=== PATIENT | female | born 1960 | race Caucasian/White ===

== ENCOUNTER 2016-09-18 14:50 | Inpatient (IN) | payer OTHER, SELFPAY ==
[2016-09-18] VITALS (7 sets, daily range): BP systolic 114–135; BP diastolic 73–92; PULSE 60–84; RESP 14–18; TEMP 97.8; O2SAT 94–95
[~2016-09-18] VITALS: Ht 165.1 cm; Wt 69.0 kg
[~2016-09-18 14:50] MED LIST: Z.0.NO CURRENT MEDS
[2016-09-18] MEDS ORDERED: SODIUM CHLOR 0.9% 1000 ML INJ 1,000 ML IV SCH (16:18)
[2016-09-18] MEDS ORDERED: ONDANSETRON HCL 4 MG/2 ML VIAL IVP ONE (16:30)
[2016-09-18] MEDS ORDERED: SODIUM CHLORIDE 0.9% FLUSH 5 ML FLUSH IVF PRN ×2 (16:30→22:15)
--- NOTE | 2016-09-18 16:45 | PD ---
HPI Chief Complaint: GI Complaint Time Seen by Provider: 16:10 Travel History International Travel<30 days: No Contact w/Intl Traveler<30days: No History of Present Illness HPI Patient 55-year-old female presents with nausea and vomiting for the past 2 days. Patient's complaint is "I think I got food poisoning and initially got better but today has gotten worse". Patient states she's been having nonbilious nonbloody emesis denies any change in her stools. She also complains of an abdominal cramping fairly generalized throughout her abdomen. Denies any focal pain. States his pain comes and goes. Currently she states the pain is completely gone and she declines any pain medicine when offered. Denies any fever denies any chest pain shortness of breath extremity pain rash. Denies any other sick contacts. Patient denies any surgeries on her abdomen, states she's never had a colonoscopy. Medical history is that she has hyperlipidemia, hypertension, smoker. PFSH Past Medical History Anxiety: Yes High Cholesterol: Yes Diminished Hearing: No Hypertension: Yes Tetanus Vaccination: > 5 Years Influenza Vaccination: No ?: Not Menopausal: Yes : 0 Past Surgical History Other Surgery: Yes (2 LUMPECTOMIES (RIGHT BREAST)) Social History Alcohol Use: Yes (3 BEERS DAILY) Tobacco Use: Yes (3/4 PPD) Substance Use: No Allergies-Medications (Allergen,Severity, Reaction): Coded Allergies: No Known Allergies (Verified , 09/18/16) Reported Meds & Prescriptions Reported Meds & Active Scripts Active Reported No Current Meds (Miscellaneous Medication) Misc Review of Systems Except as stated in HPI: all other systems reviewed are Neg Physical Exam Narrative GENERAL: Well-developed well-nourished no apparent distress. SKIN: Warm and dry. HEAD: Atraumatic. Normocephalic. EYES: Pupils equal and round. No scleral icterus. No injection or drainage. ENT: No nasal bleeding or discharge. Mucous membranes pink and moist. NECK: Trachea midline. No JVD. CARDIOVASCULAR: Regular rate and rhythm. No murmur appreciated. RESPIRATORY: No accessory muscle use. Clear to auscultation. Breath sounds equal bilaterally. GASTROINTESTINAL: Abdomen soft, non-tender, nondistended. Hepatic and splenic margins not palpable. No perineal signs no percussive tenderness no rebound tenderness psoas sign and obturator sign negative, Simpson sign negative. MUSCULOSKELETAL: No obvious deformities. No clubbing. No cyanosis. No edema. NEUROLOGICAL: Awake and alert. No obvious cranial nerve deficits. Motor grossly within normal limits. Normal speech. PSYCHIATRIC: Appropriate mood and affect; insight and judgment normal. Data Data Last Documented VS Vital Signs Date Time Temp Pulse Resp B/P Pulse Ox O2 Delivery O2 Flow Rate FiO2 09/18/16 18:30 79 18 135/83 94 Room Air 09/18/16 15:04 97.8 Orders Complete Blood Count With Diff (09/18/16 16:18) Comprehensive Metabolic Panel (09/18/16 16:18) Lipase (09/18/16 16:18) Iv Access Insert/Monitor (09/18/16 16:18) Ecg Monitoring (09/18/16 16:18) Oximetry (09/18/16 16:18) Ondansetron Inj (Zofran Inj) (09/18/16 16:30) Sodium Chlor 0.9% 1000 Ml Inj (Ns 1000 M (09/18/16 16:18) Sodium Chloride 0.9% Flush (Ns Flush) (09/18/16 16:30) Ct Abd/Pel W Iv Contrast(Rout) (09/18/16 ) Iohexol 350 Inj (Omnipaque 350 Inj) (09/18/16 17:56) Insert Ng Tube (09/18/16 18:18) Lactic Acid (09/18/16 18:33) Admit Order (Ed Use Only) (09/18/16 ) Labs Laboratory Tests Test 09/18/16 16:35 White Blood Count 17.0 TH/MM3 Red Blood Count 4.73 MIL/MM3 Hemoglobin 15.6 GM/DL Hematocrit 46.0 % Mean Corpuscular Volume 97.3 FL Mean Corpuscular Hemoglobin 32.9 PG Mean Corpuscular Hemoglobin 33.9 % Concent Red Cell Distribution Width 12.4 % Platelet Count 204 TH/MM3 Mean Platelet Volume 9.6 FL Neutrophils (%) (Auto) 87.0 % Lymphocytes (%) (Auto) 7.8 % Monocytes (%) (Auto) 4.9 % Eosinophils (%) (Auto) 0.1 % Basophils (%) (Auto) 0.2 % Neutrophils # (Auto) 14.9 TH/MM3 Lymphocytes # (Auto) 1.3 TH/MM3 Monocytes # (Auto) 0.8 TH/MM3 Eosinophils # (Auto) 0.0 TH/MM3 Basophils # (Auto) 0.0 TH/MM3 CBC Comment DIFF FINAL Differential Comment Sodium Level 139 MEQ/L Potassium Level 4.3 MEQ/L Chloride Level 98 MEQ/L Carbon Dioxide Level 31.8 MEQ/L Anion Gap 9 MEQ/L Blood Urea Nitrogen 24 MG/DL Creatinine 0.93 MG/DL Estimat Glomerular Filtration 63 ML/MIN Rate Random Glucose 128 MG/DL Calcium Level 9.2 MG/DL Total Bilirubin 1.0 MG/DL Aspartate Amino Transf 13 U/L (AST/SGOT) Alanine Aminotransferase 23 U/L (ALT/SGPT) Alkaline Phosphatase 89 U/L Total Protein 7.4 GM/DL Albumin 3.9 GM/DL Lipase 102 U/L [facility] Medical Decision Making Medical Screen Exam Complete: Yes Emergency Medical Condition: Yes Differential Diagnosis Small bowel obstruction, gastritis, gastric enteritis, pancreatitis, cholecystitis, colon cancer Narrative Course 55-year-old female presents emergency department with nausea and vomiting for the past 2 days which has been waxing and waning. Her abdomen exam is actually completely benign. CT scan examination was indicated due to her elevated white blood cell count coupled with her age. Last 24 hours Impressions Abdomen/Pelvis CT 09/18/16 0000 Signed Impressions: Service Date/Time: Sunday, September 18, 2016 17:48 - CONCLUSION: 1. Findings consistent with a distal small bowel obstruction. There is a transition zone in pelvis and the terminal ileum and colon are decompressed. 2. There is a small to moderate amount of ascitic fluid. There is no free air. Zeeshan Csatro MD Patient's CBC is otherwise unremarkable, CMP are likewise unremarkable, patient' s chest scan findings were discussed with Dr. Grey Green who agrees the patient needs admission to the hospital. An NG tube was passed and confirmed with x-ray. Placed on lower mid suction, given her nondistended stomach and the CAT scan highly suspect that patient may need surgical intervention. This was discussed with Dr. Green who agrees the patient would be best served at the [facility]. For her safety the patient was transferred to the [facility] under his service. Initially offered pain medicine patient declined however after NG tube placement she would like some pain medicine. She was given total 4 mg of morphine and 4 mg Zofran in emerged Department as well as a liter normal saline by bolus. The recommendations were passed on to the patient who agrees for transfer and admission. Diagnosis Primary Impression: Small bowel obstruction Admitting Information Admitting Physician Requests: Admit Condition: Stable Sergey Martin MD Sep 18, 2016 16:45
[2016-09-18 16:55] LABS: AUTOMATED NEUTROPHIL # 14.9 TH/MM3 (1.8-7.7); BASOPHIL % 0.2 % (0.0-2.0); EOSINOPHIL % 0.1 % (0.0-4.0); HEMO FLAGS DIFF FINAL; LYMPH % 7.8 % (9.0-44.0); LYMPHOCYTE # 1.3 TH/MM3 (1.0-4.8); MEAN CELL VOLUME 97.3 FL (80.0-100.0); MEAN CORPUSCULAR HEMOGLOBIN 32.9 PG (27.0-34.0); MEAN CORPUSCULAR HGB CONC 33.9 % (32.0-36.0); MONO % 4.9 % (0.0-8.0); PLATELET COUNT 204 TH/MM3 (150-450); RED BLOOD COUNT 4.73 MIL/MM3 (4.00-5.30); RED CELL DISTRIBUTION WIDTH 12.4 % (11.6-17.2)
[2016-09-18 17:09] LABS: CHLORIDE 98 MEQ/L (98-107); POTASSIUM 4.3 MEQ/L (3.5-5.1); SODIUM (NA) 139 MEQ/L (136-145)
[2016-09-18 17:13] LABS: ANION GAP 9 MEQ/L (5-15); BICARBONATE 31.8 MEQ/L (21.0-32.0); BLOOD UREA NITROGEN 24 MG/DL (7-18)
[2016-09-18 17:16] LABS: ALT (GPT) 23 U/L (10-53); AST (GOT) 13 U/L (15-37); GLOMERULAR FILTRATION RATE 63 ML/MIN (>89)
[2016-09-18 17:19] LABS: ALKALINE PHOSPHATASE 89 U/L (45-117)
[2016-09-18] MEDS ORDERED: IOHEXOL 350 MG/ML 10 ML VIAL (for RAD DIAG) IV ONE (17:56)
--- NOTE | 2016-09-18 18:13 | RADHPO ---
EXAM DATE/TIME: 09/18/2016 17:48 [facility] COMPARISON: No previous studies available for comparison. INDICATIONS : Abdominal pain. Cramping. Nausea. Vomiting. IV CONTRAST: 100 cc Omnipaque 350 (iohexol) IV ORAL CONTRAST: No oral contrast ingested. RADIATION DOSE: 8.71 CTDIvol (mGy) MEDICAL HISTORY : Hypertension. SURGICAL HISTORY : None. ENCOUNTER: Initial ACUITY: 1 day PAIN SCALE: 10/10 LOCATION: Umbilical TECHNIQUE: Volumetric scanning of the abdomen and pelvis was performed. Using automated exposure control and ad justment of the mA and/or kV according to patient size, radiation dose was kept as low as reasonably achievable to obtain optimal diagnostic quality images. FINDINGS: LOWER LUNGS: The visualized lower lungs are clear. LIVER: Homogeneous density without lesion. There is no dilation of the biliary tree. No calcified gallston es. The gallbladder is partially decompressed but otherwise unremarkable. SPLEEN: Normal size without lesion. PANCREAS: Within normal limits. KIDNEYS: Normal in size and shape. There is no mass, stone or hydronephrosis. ADRENAL GLANDS: Within normal limits. VASCULAR: There is no aortic aneurysm. BOWEL/MESENTERY: Areas of abnormal bowel gas pattern. The colon is decompressed. There are multiple loops of mildly di lated air-containing small bowel with multiple air-fluid levels. There is a transition zone in the pe lvis. The distal ileum is also decompressed. A small to moderate amount of ascitic fluid in the pelvi s. There is a small amount of ascitic fluid in the upper abdomen. ABDOMINAL WALL: Within normal limits. RETROPERITONEUM: There is no lymphadenopathy. BLADDER: No wall thickening or mass. REPRODUCTIVE: Within normal limits. INGUINAL: There is no lymphadenopathy or hernia. MUSCULOSKELETAL: Within normal limits for patient age. CONCLUSION: 1. Findings consistent with a distal small bowel obstruction. There is a transition zone in pelvis an d the terminal ileum and colon are decompressed. 2. There is a small to moderate amount of ascitic fluid. There is no free air. Zeeshan Castro MD on September 18, 2016 at 18:08 Board Certified Radiologist. This report was verified electronically.
[2016-09-18] MEDS ORDERED: MORPHINE SULFATE 4 MG/ML INJ IV PUSH ONE (19:45)
--- NOTE | 2016-09-18 19:49 | RADHPO ---
EXAM DATE/TIME: 09/18/2016 18:55 [facility] COMPARISON: No previous studies available for comparison. INDICATIONS : Post NG tube placement. MEDICAL HISTORY : Hypertension. SURGICAL HISTORY : None. ENCOUNTER: Initial ACUITY: 1 day PAIN SCORE: 3/10 LOCATION: abdomen. FINDINGS: Examination of the abdomen demonstrates an NG tube in the stomach. The lungs are grossly clear. There is an air-filled mildly dilated loops of small bowel. CONCLUSION: NG tube in stomach. Octavio Silveira MD on September 18, 2016 at 19:46 Board Certified Radiologist. This report was verified electronically.
[2016-09-18] MEDS ORDERED: Post-op Orders (for Pharmacy) MISC XX ONE (22:15)
[2016-09-18] MEDS ORDERED: NALOXONE HCL 0.4 MG/ML AMP IV PRN (22:15)
[2016-09-18] MEDS ORDERED: ONDANSETRON HCL 4 MG/2 ML VIAL IV PRN (22:15)
--- NOTE | 2016-09-18 22:44 | HHI.HP ---
HPI Service General Surgery Primary Care Physician No Primary Care Physician Admission Diagnosis SBO Chief Complaint: Abdominal pain, vomiting History of Present Illness The patient is a 55-year-old female who 2 nights ago developed severe abdominal pain diffusely followed by vomiting. The pain and vomiting both have persisted since that time and she presented to the emergency department in [place] this morning. The patient has never had this happen before. She has no abdominal surgical history. She has not been passing flatus and had a small bowel movement yesterday morning. No colonoscopy. 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 He was evaluated in the emergency department and noted to have leukocytosis of 17,[address] scan of the abdomen and pelvis concerning for small bowel obstruction. Review of Systems Constitutional: DENIES: Fever, Chills Eyes: DENIES: Eye inflammation, Eye pain Respiratory: DENIES: Cough, Wheezing Cardiovascular: DENIES: Chest pain, Palpitations Gastrointestinal: COMPLAINS OF: Abdominal pain, Nausea, Vomiting Integumentary: DENIES: Pruritus, Rash Neurologic: DENIES: Headache, Localized weakness Past Family Social History Past Medical History Hypertension Hyperlipidemia Past Surgical History 2 breast biopsies Reported Medications Lisinopril Simvastatin Xanax Allergies: Coded Allergies: No Known Allergies (Verified , 09/18/16) Active Ordered Medications Current Medications Medications (Trade) Dose Ordered Sig/Alley Route Start Time Stop Time Status Last Admin (NS 1000 ml Inj) 1,000 ml @ 150 mls/hr Q6H40M IV 09/18/16 22:07 (NS Flush) 2 ml UNSCH PRN IVF 09/18/16 22:15 (NS Flush) 2 ml BID IVF 09/19/16 09:00 (Zofran Inj) 4 mg Q6H PRN IV 09/18/16 22:15 (Protonix Inj) 40 mg Q24H IV 09/18/16 22:15 (Narcan Inj) 0.4 mg UNSCH PRN IV 09/18/16 22:15 Family History Noncontributory Social History She drinks 3-5 beers daily. 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 She smokes half to three quarters of a pack of cigarettes daily. Physical Exam Vital Signs Vital Signs Date Time Temp Pulse Resp B/P Pulse Ox O2 Delivery O2 Flow Rate FiO2 09/18/16 20:45 77 16 114/73 94 Room Air 09/18/16 19:54 16 09/18/16 19:30 72 16 122/92 95 Room Air 09/18/16 18:30 79 18 135/83 94 Room Air 09/18/16 17:30 60 16 135/83 95 Room Air 09/18/16 16:31 83 16 119/79 95 Room Air 09/18/16 16:26 16 95 Room Air 09/18/16 15:04 97.8 84 14 116/89 95 Room Air Physical Exam GENERAL: Awake and alert. No acute distress. Cooperative. HEAD: Normocephalic. Atraumatic. EYES: Pupils equal round and reactive to light bilaterally. No scleral icterus. CHEST: Lungs clear to auscultation bilaterally with no wheezing or rhonchi. No respiratory distress. CARDIOVASCULAR: Regular rate and rhythm. ABDOMEN: Distended. Soft. No previous surgical incisions. No inguinal or umbilical hernia. Mild diffuse tenderness to palpation. No rebound or guarding. NG tube is in place. EXTREMITIES: No cyanosis or edema. SKIN: Warm, dry, nonjaundiced. Laboratory Laboratory Tests Test 09/18/16 09/18/16 16:35 19:10 White Blood Count 17.0 Red Blood Count 4.73 Hemoglobin 15.6 Hematocrit 46.0 Mean Corpuscular Volume 97.3 Mean Corpuscular Hemoglobin 32.9 Mean Corpuscular Hemoglobin 33.9 Concent Red Cell Distribution Width 12.4 Platelet Count 204 Mean Platelet Volume 9.6 Neutrophils (%) (Auto) 87.0 Lymphocytes (%) (Auto) 7.8 Monocytes (%) (Auto) 4.9 Eosinophils (%) (Auto) 0.1 Basophils (%) (Auto) 0.2 Neutrophils # (Auto) 14.9 Lymphocytes # (Auto) 1.3 Monocytes # (Auto) 0.8 Eosinophils # (Auto) 0.0 Basophils # (Auto) 0.0 CBC Comment DIFF FINAL Differential Comment Sodium Level 139 Potassium Level 4.3 Chloride Level 98 Carbon Dioxide Level 31.8 Anion Gap 9 Blood Urea Nitrogen 24 Creatinine 0.93 Estimat Glomerular Filtration 63 Rate Random Glucose 128 Calcium Level 9.2 Total Bilirubin 1.0 Aspartate Amino Transf 13 (AST/SGOT) Alanine Aminotransferase 23 (ALT/SGPT) Alkaline Phosphatase 89 Total Protein 7.4 Albumin 3.9 Lipase 102 Lactic Acid Level 1.0 Result Diagram: 09/18/16 1635 09/18/16 1635 Imaging Last Impressions Abdomen/Pelvis CT 09/18/16 0000 Signed Impressions: Service Date/Time: Sunday, September 18, 2016 17:48 - CONCLUSION: 1. Findings consistent with a distal small bowel obstruction. There is a transition zone in pelvis and the terminal ileum and colon are decompressed. 2. There is a small to moderate amount of ascitic fluid. There is no free air. Zeeshan Castro MD Abdomen X-Ray 09/18/16 0000 Signed Impressions: Service Date/Time: Sunday, September 18, 2016 18:55 - CONCLUSION: NG tube in stomach. Octavio Silveira MD Assessment and Plan Assessment and Plan 55-year-old female with no previous surgical history who has evaluation consistent with small bowel obstruction versus high-grade ileus versus gastroenteritis. I will manage this nonoperatively at this time. Continue NG tube, nothing by mouth, and IV fluids. Repeat lab work and abdominal films in the morning. Based on her clinical progress over the next 2 or 3 days if she does not improve and continues to have obstructive findings she may require exploration. I discussed this in detail with the patient and she understands. Adelso Green MD Sep 18, 2016 22:44
[2016-09-18] MEDS: SODIUM CHLOR 0.9% 1000 ML INJ 1,000 ML IV SCH (23:12)
[2016-09-18] MEDS: PANTOPRAZOLE SODIUM 40 MG VIAL IV SCH (23:12)
[2016-09-18] MEDS: SODIUM CHLORIDE 0.9% FLUSH 5 ML FLUSH IVF SCH (23:12)
[2016-09-19] VITALS: BP 132/79; PULSE 69; RESP 18; TEMP 97.9; O2SAT 92
[2016-09-19] MEDS: SODIUM CHLOR 0.9% 1000 ML INJ 1,000 ML IV SCH ×3 (04:47→21:14)
[2016-09-19 05:08] LABS: AUTOMATED NEUTROPHIL # 11.7 TH/MM3 (1.8-7.7); BASOPHIL % 0.3 % (0.0-2.0); EOSINOPHIL % 0.1 % (0.0-4.0); HEMATOCRIT 40.5 % (35.0-46.0); HEMO FLAGS DIFF FINAL; LYMPH % 14.3 % (9.0-44.0); LYMPHOCYTE # 2.1 TH/MM3 (1.0-4.8); MEAN CELL VOLUME 99.2 FL (80.0-100.0); MEAN CORPUSCULAR HEMOGLOBIN 34.4 PG (27.0-34.0); MEAN CORPUSCULAR HGB CONC 34.6 % (32.0-36.0); MONO % 7.8 % (0.0-8.0); NEUT % 77.5 % (16.0-70.0); PLATELET COUNT 167 TH/MM3 (150-450); RED BLOOD COUNT 4.08 MIL/MM3 (4.00-5.30); RED CELL DISTRIBUTION WIDTH 12.9 % (11.6-17.2); WHITE BLOOD COUNT 15.1 TH/MM3 (4.0-11.0)
[2016-09-19 05:39] LABS: BICARBONATE 31.3 MEQ/L (21.0-32.0); POTASSIUM 4.5 MEQ/L (3.5-5.1)
--- NOTE | 2016-09-19 06:07 | RADRPT ---
EXAM DATE/TIME: 09/19/2016 05:51 [facility] COMPARISON: ABDOMEN SINGLE VIEW, September 18, 2016, 18:55. INDICATIONS : Abdominal pain and distention. MEDICAL HISTORY : Hypertension. SURGICAL HISTORY : None. ENCOUNTER: Subsequent ACUITY: 2 days PAIN SCORE: 6/10 LOCATION: Bilateral abdomen FINDINGS: Supine and upright views of the abdomen were performed. Marked dilatation of multiple loops of small bowel in the upper abdomen and mid abdomen. Small bowel loops measure up to 5 cm in diameter. Multipl e small bowel air-fluid levels. Paucity of gas in the colon. No evidence of free air. Nasogastric tub e in place. Contrast in the urinary bladder. CONCLUSION: Multiple markedly dilated loops of small bowel and paucity of gas in the colon sugges ting small bowel obstruction. Ronak Dorman MD on September 19, 2016 at 6:02 Board Certified Radiologist. This report was verified electronically.
[2016-09-19 07:59] VITALS: BP 126/82; PULSE 66; RESP 17; TEMP 97.9; O2SAT 94
[2016-09-19] MEDS: SODIUM CHLORIDE 0.9% FLUSH 5 ML FLUSH IVF SCH ×2 (09:00→21:00)
--- NOTE | 2016-09-19 11:42 | HHI.PR ---
Subjective Subjective Notes She feels about the same. No flatus. Some abdominal discomfort; no localized pain. Objective Vitals/I&O Vital Signs Date Time Temp Pulse Resp B/P Pulse Ox O2 Delivery O2 Flow Rate FiO2 09/19/16 07:59 97.9 66 17 126/82 94 09/18/16 20:45 Room Air Labs Laboratory Tests Test 09/18/16 09/18/16 09/19/16 16:35 19:10 04:15 White Blood Count 17.0 15.1 Red Blood Count 4.73 4.08 Hemoglobin 15.6 14.0 Hematocrit 46.0 40.5 Mean Corpuscular Volume 97.3 99.2 Mean Corpuscular Hemoglobin 32.9 34.4 Mean Corpuscular Hemoglobin 33.9 34.6 Concent Red Cell Distribution Width 12.4 12.9 Platelet Count 204 167 Mean Platelet Volume 9.6 10.0 Neutrophils (%) (Auto) 87.0 77.5 Lymphocytes (%) (Auto) 7.8 14.3 Monocytes (%) (Auto) 4.9 7.8 Eosinophils (%) (Auto) 0.1 0.1 Basophils (%) (Auto) 0.2 0.3 Neutrophils # (Auto) 14.9 11.7 Lymphocytes # (Auto) 1.3 2.1 Monocytes # (Auto) 0.8 1.2 Eosinophils # (Auto) 0.0 0.0 Basophils # (Auto) 0.0 0.0 CBC Comment DIFF FINAL DIFF FINAL Differential Comment Sodium Level 139 141 Potassium Level 4.3 4.5 Chloride Level 98 102 Carbon Dioxide Level 31.8 31.3 Anion Gap 9 8 Blood Urea Nitrogen 24 20 Creatinine 0.93 0.68 Estimat Glomerular Filtration 63 90 Rate Random Glucose 128 89 Calcium Level 9.2 8.7 Total Bilirubin 1.0 Aspartate Amino Transf 13 (AST/SGOT) Alanine Aminotransferase 23 (ALT/SGPT) Alkaline Phosphatase 89 Total Protein 7.4 Albumin 3.9 Lipase 102 Lactic Acid Level 1.0 Radiology Last Impressions Abdomen/Pelvis CT 09/18/16 0000 Signed Impressions: Service Date/Time: Sunday, September 18, 2016 17:48 - CONCLUSION: 1. Findings consistent with a distal small bowel obstruction. There is a transition zone in pelvis and the terminal ileum and colon are decompressed. 2. There is a small to moderate amount of ascitic fluid. There is no free air. Zeeshan Castro MD Abdomen X-Ray 09/18/16 0000 Signed Impressions: Service Date/Time: Sunday, September 18, 2016 18:55 - CONCLUSION: NG tube in stomach. Octavio Silveira MD Narrative Exam NAD, resting in bed nonlabored breathing Abd: moderate distention, soft, moderate lower abdominal ttp, ng to suction 550cc /12h A/P Assessment and Plan 55 yo F with evaluation consistent with SBO; no previous surgeries, no hernia. Abdominal films show markedly dilated small bowel with air fluid levels. Cont IVF/NPO/NGT to suction. Continue attempts at conservative nonoperative management. PeterAdelso leija MD Sep 19, 2016 11:42
[2016-09-19 12:00] VITALS: BP 135/83; PULSE 56; RESP 17; TEMP 96.4; O2SAT 93
[2016-09-19 16:00] VITALS: BP 131/82; PULSE 60; RESP 18; TEMP 95.8; O2SAT 93
[2016-09-19 20:00] VITALS: BP 135/84; PULSE 57; RESP 16; TEMP 96.6; O2SAT 92
[2016-09-19] MEDS: PANTOPRAZOLE SODIUM 40 MG VIAL IV SCH (21:20)
[2016-09-19 23:37] VITALS: BP 125/81; PULSE 60; RESP 16; TEMP 98.5; O2SAT 92
[2016-09-20] MEDS: SODIUM CHLOR 0.9% 1000 ML INJ 1,000 ML IV SCH ×3 (05:44→20:49)
[2016-09-20 08:00] VITALS: BP 157/89; PULSE 63; RESP 18; TEMP 95.8; O2SAT 91
[2016-09-20] MEDS: SODIUM CHLORIDE 0.9% FLUSH 5 ML FLUSH IVF SCH ×2 (08:20→20:50)
[2016-09-20] MEDS ORDERED: MORPHINE SULFATE 4 MG/ML INJ IV ONE (13:15)
[2016-09-20 13:29] LABS: AUTOMATED NEUTROPHIL # 9.5 TH/MM3 (1.8-7.7); BASOPHIL # 0.1 TH/MM3 (0-0.2); BASOPHIL % 0.5 % (0.0-2.0); EOSINOPHIL % 0.2 % (0.0-4.0); HEMATOCRIT 39.7 % (35.0-46.0); HEMO FLAGS DIFF FINAL; LYMPH % 13.4 % (9.0-44.0); LYMPHOCYTE # 1.6 TH/MM3 (1.0-4.8); MEAN CORPUSCULAR HEMOGLOBIN 32.9 PG (27.0-34.0); MEAN CORPUSCULAR HGB CONC 32.9 % (32.0-36.0); MONO % 6.6 % (0.0-8.0); NEUT % 79.3 % (16.0-70.0); PLATELET COUNT 161 TH/MM3 (150-450); RED BLOOD COUNT 3.97 MIL/MM3 (4.00-5.30); RED CELL DISTRIBUTION WIDTH 12.6 % (11.6-17.2)
[2016-09-20] MEDS ORDERED: DIATRIZOATE MEGLUM/DIATRIZOATE SOD 120 ML BTL (for RAD DIAG) NG ONE (13:37)
[2016-09-20 13:57] LABS: BICARBONATE 26.9 MEQ/L (21.0-32.0); POTASSIUM 3.1 MEQ/L (3.5-5.1)
[2016-09-20 16:00] VITALS: BP 127/82; PULSE 60; RESP 18; TEMP 98; O2SAT 93
[2016-09-20] MEDS: POTASSIUM CHLOR 20 MEQ PREMIX 100 ML IV SCH ×2 (17:44→20:49)
--- NOTE | 2016-09-20 19:27 | RADRPT ---
EXAM DATE/TIME: 09/20/2016 10:55 [facility] COMPARISON: CT ABDOMEN & PELVIS W CONTRAST, September 18, 2016, 17:48. INDICATIONS : Abdomen pain FLUORO TIME: ? minutes IMAGE COUNT: ? CONTRAST: ? IMAGING TIME(S): 15 min, 30 min, 45 min, 1 hr, 3 hr, 6 hrs MEDICAL HISTORY : None. SURGICAL HISTORY : None. ENCOUNTER: Initial ACUITY: 4 - 6 days PAIN SCORE: 8/10 LOCATION: Bilateral upper quadrant FINDINGS: Moderate to severe air and fluid-filled small bowel seen to at least the level of the distal jejunum versus proximal ileum. Small bowel transit time is around 8 hours. There are decompressed the bowel l oops in the pelvic cavity. This study does not show well-defined transition but the CT indicates it b eing in the pelvic cavity slightly left of midline. Stomach is decompressed by a nasogastric tube. The colon is decompressed. CONCLUSION: High-grade small bowel obstruction at the level of the distal jejunum/proximal ileum. Jesus Rolle MD on September 20, 2016 at 19:23 Board Certified Radiologist. This report was verified electronically.
[2016-09-20 20:00] VITALS: BP_SYST 174; BP_SYST 176; BP_DIAS 90; BP_DIAS 96; PULSE 54; PULSE 58; RESP 17; TEMP 96.5; TEMP 98; O2SAT 94; O2SAT 96
[2016-09-20] MEDS: PANTOPRAZOLE SODIUM 40 MG VIAL IV SCH (20:49)
[2016-09-20] MEDS: MORPHINE SULFATE 4 MG/ML INJ IV PRN (21:56)
[2016-09-21] VITALS: BP 123/79; PULSE 57; RESP 17; TEMP 96.4; O2SAT 94
[2016-09-21] MEDS: SODIUM CHLOR 0.9% 1000 ML INJ 1,000 ML IV SCH ×4 (02:00→23:27)
[2016-09-21 04:44] LABS: POTASSIUM 3.7 MEQ/L (3.5-5.1)
[2016-09-21] MEDS ORDERED: LACTATED RINGER'S 1000 ML INJ 1,000 ML IV ONE (07:15)
--- NOTE | 2016-09-21 07:17 | HHI.PR ---
Subjective Subjective Notes Had severe pain during SBFT which showed high grade small bowel obstruction. Objective Vitals/I&O Vital Signs Date Time Temp Pulse Resp B/P Pulse Ox O2 Delivery O2 Flow Rate FiO2 09/21/16 00:00 96.4 57 17 123/79 94 09/18/16 20:45 Room Air Labs Laboratory Tests Test 09/20/16 09/21/16 12:51 03:38 White Blood Count 12.0 Red Blood Count 3.97 Hemoglobin 13.1 Hematocrit 39.7 Mean Corpuscular Volume 100.0 Mean Corpuscular Hemoglobin 32.9 Mean Corpuscular Hemoglobin 32.9 Concent Red Cell Distribution Width 12.6 Platelet Count 161 Mean Platelet Volume 9.9 Neutrophils (%) (Auto) 79.3 Lymphocytes (%) (Auto) 13.4 Monocytes (%) (Auto) 6.6 Eosinophils (%) (Auto) 0.2 Basophils (%) (Auto) 0.5 Neutrophils # (Auto) 9.5 Lymphocytes # (Auto) 1.6 Monocytes # (Auto) 0.8 Eosinophils # (Auto) 0.0 Basophils # (Auto) 0.1 CBC Comment DIFF FINAL Differential Comment Sodium Level 145 149 Potassium Level 3.1 3.7 Chloride Level 106 110 Carbon Dioxide Level 26.9 27.0 Anion Gap 12 12 Blood Urea Nitrogen 22 22 Creatinine 0.59 0.59 Estimat Glomerular Filtration 106 106 Rate Random Glucose 65 72 Calcium Level 8.9 8.6 Radiology Last Impressions Abdomen/Pelvis CT 09/18/16 0000 Signed Impressions: Service Date/Time: Sunday, September 18, 2016 17:48 - CONCLUSION: 1. Findings consistent with a distal small bowel obstruction. There is a transition zone in pelvis and the terminal ileum and colon are decompressed. 2. There is a small to moderate amount of ascitic fluid. There is no free air. Zeeshan Castro MD Abdomen X-Ray 09/18/16 0000 Signed Impressions: Service Date/Time: Sunday, September 18, 2016 18:55 - CONCLUSION: NG tube in stomach. Octavio Silveira MD Narrative Exam NAD, resting in bed nonlabored breathing Abd: moderate distention, soft, moderate lower abdominal ttp, ng to suction 2600cc bilious/24h A/P Assessment and Plan 55 yo F with evaluation consistent with SBO; no previous surgeries, no hernia. She is more distended today. Had severe pain after SBFT which confirmed high grade SBO. Plan to proceed to OR for dx laparoscopy, possible laparotomy, possible bowel resection. I discussed details of the procedure as well as risks and benefits with the patient and she desires to proceed. PeterAdelso MD Sep 21, 2016 07:17
[2016-09-21 08:00] VITALS: BP 165/86; PULSE 51; RESP 16; TEMP 97.4; O2SAT 94
[2016-09-21] MEDS: SODIUM CHLORIDE 0.9% FLUSH 5 ML FLUSH IVF SCH ×2 (09:00→21:57)
[2016-09-21] MEDS ORDERED: ONDANSETRON HCL 4 MG/2 ML VIAL IV PUSH ONE (09:03)
[2016-09-21] MEDS ORDERED: PROPOFOL 200 MG/20 ML AMP IV ONE (09:03)
[2016-09-21] MEDS ORDERED: NEOSTIGMINE 3 MG/3 ML SYR IV ONE (09:03)
[2016-09-21] MEDS ORDERED: BUPIVACAINE/EPINEPHRINE 0.5% PF 30 ML VIAL ONE (09:12)
[2016-09-21] MEDS ORDERED: ACETAMINOPHEN 1000 MG/100 ML VIAL IV ONE (09:29)
[2016-09-21] MEDS ORDERED: fentaNYL CITRATE 250 MCG/5 ML AMP ONE (09:46)
[2016-09-21] MEDS ORDERED: DICLOFENAC SODIUM 37.5 MG/ML VIAL IV PUSH ONE (09:46)
[2016-09-21] MEDS ORDERED: MIDAZOLAM HCL 2 MG/2 ML VIAL ONE (09:46)
[2016-09-21] MEDS ORDERED: FAMOTIDINE 20 MG/2 ML VIAL ONE (09:46)
[2016-09-21] MEDS ORDERED: HYDROmorphone HCL PF 2 MG/ML VIAL ONE (09:47)
[2016-09-21] MEDS ORDERED: DEXAMETHASONE SOD PHOS 4 MG/ML VIAL ONE (09:47)
[2016-09-21] MEDS ORDERED: ceFAZolin 2 GM PREMIX 50 ML ONE (10:02)
[2016-09-21] MEDS ORDERED: metroNIDAZOLE 500 MG INJ 100 ML IV ONE (10:02)
[2016-09-21] MEDS ORDERED: BUPIVACAINE/EPINEPHRINE 0.25% PF 30 ML VIAL INFIL ONE (10:31)
[2016-09-21] MEDS ORDERED: DO NOT ADM ANY ANTICOAGULANT DRUGS XX PRN (11:10)
--- NOTE | 2016-09-21 11:10 | PD.OP ---
cc: Adelso Green MD Operative Report Date of Surgery: Sep 21, 2016 Preoperative Diagnosis: (1) Small bowel obstruction Postoperative Diagnosis: (1) Small bowel obstruction (2) Adhesion of abdominal wall Procedure: Diagnostic laparoscopy, lysis of adhesions Anesthesia: TAMIRA Surgeon: Adelso Green Care Specialist(s): Gisselle Operation and Findings: EBL: 5 cc Operative findings: The patient had a portion of small bowel stuck or herniated through a colonic to abdominal wall adhesion in the left lower quadrant. There was a transition point here. 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 Procedure in detail: The patient was taken to the operating room and placed in supine position. Gen. endotracheal anesthesia was induced. The abdomen was prepped and draped in usual sterile fashion. Surgical timeout performed to verify correct patient procedure and site and appropriate perioperative antibiotics were administered. In the right midabdomen and a 5 mm incision was made after infiltration with local anesthetic. The 5 mm port was inserted with direct laparoscopic visualization. The abdomen was insufflated to 15 mmHg which the patient tolerated well. The laparoscope was inserted and there was very dilated proximal small bowel. She was placed in Trendelenburg position. A 5 mm port was placed in the right lower abdomen and one just above the umbilicus. Attention was turned to the left lower quadrant where it appeared there was a transition point CT scan. Very gentle manipulation of the small bowel was performed as it was quite dilated. In the left lower quadrant near the pelvic sidewall the colon was adherent to the abdominal wall and there was a kink of small bowel underneath this adhesion. It appeared there may be a transition point here. The adhesion was carefully divided sharply with the scissors. The small bowel was able to be pulled out from this point of adhesion or small hernia and it was freed. There was decompressed distal small bowel at this point and an obvious transition point. It was no longer obstructed. A bit more of the adhesion along the left lower abdomen and pelvic sidewall was taken down sharply. The remainder of the abdomen was inspected and there was adhesions extensively from the liver to the anterior abdominal wall. No further obvious abnormalities were identified. The abdomen was desufflated and trochars were removed. Skin was closed with 4-0 Monocryl and Dermabond. The patient tolerated procedure well and was extubated and taken to PACU in stable condition. Adelso Green MD Sep 21, 2016 11:10
[2016-09-21] MEDS ORDERED: *morphine SULFATE 8 MG/ML PERIprocedure ONLY ONE (11:57)
[2016-09-21] MEDS ORDERED: hydrALAZINE HCL 20 MG/ML VIAL IV PRN (12:00)
--- NOTE | 2016-09-21 14:52 | EKG ---
Date Performed: 09/21/2016 Time Performed: 08:06:20 PTAGE: 55 years EKG: SINUS BRADYCARDIA BORDERLINE ECG NO PREVIOUS TRACING DOCTOR: Candice Novak Interpretating Date/Time 09/21/2016 14:51:29
[2016-09-21 16:00] VITALS: BP 137/79; PULSE 56; RESP 16; TEMP 97; O2SAT 98
[2016-09-21] MEDS: MORPHINE SULFATE 4 MG/ML INJ IV PRN (19:23)
[2016-09-21 20:00] VITALS: BP 174/90; PULSE 54; RESP 17; TEMP 96.5; O2SAT 96
[2016-09-21] MEDS: PANTOPRAZOLE SODIUM 40 MG VIAL IV SCH (21:57)
[2016-09-22] VITALS: BP 138/82; PULSE 60; RESP 17; TEMP 96; O2SAT 96
[2016-09-22 05:15] LABS: BICARBONATE 25.6 MEQ/L (21.0-32.0); POTASSIUM 3.5 MEQ/L (3.5-5.1)
[2016-09-22] MEDS: SODIUM CHLORIDE 0.9% FLUSH 5 ML FLUSH IVF SCH ×2 (07:53→21:00)
[2016-09-22 08:00] VITALS: BP 136/87; PULSE 53; RESP 16; TEMP 96.4; O2SAT 98
[2016-09-22] MEDS: SODIUM CHLOR 0.9% 1000 ML INJ 1,000 ML IV SCH (09:21)
[2016-09-22] MEDS ORDERED: MORPHINE SULFATE 4 MG/ML INJ IV PUSH PRN (10:30)
--- NOTE | 2016-09-22 10:33 | HHI.PR ---
Subjective Subjective Notes Mild abdominal pain. The crampy pain from before is gone. + flatus. Objective Vitals/I&O Vital Signs Date Time Temp Pulse Resp B/P Pulse Ox O2 Delivery O2 Flow Rate FiO2 09/22/16 08:00 96.4 53 16 136/87 98 09/21/16 12:15 Nasal Cannula 3 Labs Laboratory Tests Test 09/22/16 03:31 Sodium Level 148 Potassium Level 3.5 Chloride Level 111 Carbon Dioxide Level 25.6 Anion Gap 11 Blood Urea Nitrogen 18 Creatinine 0.52 Estimat Glomerular Filtration 122 Rate Random Glucose 61 Calcium Level 8.4 Radiology Last Impressions Abdomen/Pelvis CT 09/18/16 0000 Signed Impressions: Service Date/Time: Sunday, September 18, 2016 17:48 - CONCLUSION: 1. Findings consistent with a distal small bowel obstruction. There is a transition zone in pelvis and the terminal ileum and colon are decompressed. 2. There is a small to moderate amount of ascitic fluid. There is no free air. Zeeshan Castro MD Abdomen X-Ray 09/18/16 0000 Signed Impressions: Service Date/Time: Sunday, September 18, 2016 18:55 - CONCLUSION: NG tube in stomach. Octavio Silveira MD Narrative Exam NAD, resting in bed nonlabored breathing Abd: moderate distention, soft, mild post op ttp, NG with brownish clear output A/P Assessment and Plan 55 yo F with evaluation consistent with SBO POD 1 s/p lap lysis of adhesions Stable post op. Still significant NG output. Will likely have to keep in til tomorrow. Encourage walking in halls. DVT proph: SCDs. Paco. PeterAdelso leija MD Sep 22, 2016 10:33
[2016-09-22 12:00] VITALS: BP 139/96; PULSE 56; RESP 16; TEMP 97.5; O2SAT 97
[2016-09-22] MEDS: POTASSIUM CHLOR 20 MEQ PREMIX 100 ML IV SCH ×2 (12:09→14:45)
[2016-09-22] MEDS: ENOXAPARIN SODIUM 40 MG/0.4 ML SYRINGE SQ SCH (12:09)
[2016-09-22] MEDS: D5-1/2 NS + KCL 20 MEQ INJ 1,000 ML IV SCH ×2 (12:09→21:41)
[2016-09-22 16:00] VITALS: BP 156/95; PULSE 51; RESP 14; TEMP 96.6; O2SAT 98
[2016-09-22 20:30] VITALS: BP 158/78; PULSE 54; RESP 17; TEMP 97.9; O2SAT 97
[2016-09-22] MEDS: PANTOPRAZOLE SODIUM 40 MG VIAL IV SCH (21:41)
[2016-09-23 00:09] VITALS: BP 148/68; PULSE 52; RESP 17; TEMP 97; O2SAT 94
[2016-09-23] MEDS: D5-1/2 NS + KCL 20 MEQ INJ 1,000 ML IV SCH ×3 (02:30→15:14)
[2016-09-23 08:00] VITALS: BP 159/94; PULSE 54; RESP 16; TEMP 97.4; O2SAT 94
[2016-09-23] MEDS: SODIUM CHLORIDE 0.9% FLUSH 5 ML FLUSH IVF SCH ×2 (09:00→20:59)
[2016-09-23 12:00] VITALS: BP 181/98; PULSE 61; RESP 18; TEMP 97.5; O2SAT 96
[2016-09-23] MEDS ORDERED: LISI40TA PO (12:15)
[2016-09-23] MEDS ORDERED: ALPR.5 PO (12:17)
[2016-09-23] MEDS ORDERED: SIMV40TA PO (12:17)
--- NOTE | 2016-09-23 12:26 | HHI.PR ---
Subjective Subjective Notes No residuals after ng clamped since this am. No nausea. Passing small amt of flatus. Objective Vitals/I&O Vital Signs Date Time Temp Pulse Resp B/P Pulse Ox O2 Delivery O2 Flow Rate FiO2 09/23/16 08:00 97.4 54 16 159/94 94 09/21/16 12:15 Nasal Cannula 3 Radiology Last Impressions Abdomen/Pelvis CT 09/18/16 0000 Signed Impressions: Service Date/Time: Sunday, September 18, 2016 17:48 - CONCLUSION: 1. Findings consistent with a distal small bowel obstruction. There is a transition zone in pelvis and the terminal ileum and colon are decompressed. 2. There is a small to moderate amount of ascitic fluid. There is no free air. Zeeshan Castro MD Abdomen X-Ray 09/18/16 0000 Signed Impressions: Service Date/Time: Sunday, September 18, 2016 18:55 - CONCLUSION: NG tube in stomach. Octavio Silveira MD Narrative Exam NAD, resting in bed nonlabored breathing Abd: moderate distention, soft, NG 450cc output overnight. A/P Assessment and Plan 55 yo F with evaluation consistent with SBO POD 2 s/p lap lysis of adhesions Stable post op. NG clamped since early this am with no residuals. D/c ng. Start reglan. Restart home meds. Encourage walking in halls. DVT proph: SCDs. Paco. Adelso Green MD Sep 23, 2016 12:26
[2016-09-23] MEDS: ENOXAPARIN SODIUM 40 MG/0.4 ML SYRINGE SQ SCH (13:06)
[2016-09-23] MEDS: LISINOPRIL 20 MG TAB PO SCH (13:06)
[2016-09-23] MEDS: ALPRAZolam 0.5 MG TAB PO SCH (13:07)
[2016-09-23] MEDS: METOCLOPRAMIDE HCL 10 MG/2 ML VIAL IV PUSH SCH ×2 (15:14→20:52)
[2016-09-23 16:00] VITALS: BP 134/86; PULSE 68; RESP 16; TEMP 97.8; O2SAT 96
[2016-09-23 20:16] VITALS: BP 134/91; PULSE 78; RESP 18; TEMP 97.7; O2SAT 97
[2016-09-23] MEDS: PRAVASTATIN SOD 80 MG TAB PO SCH (20:51)
[2016-09-23] MEDS: PANTOPRAZOLE SODIUM 40 MG VIAL IV SCH (20:51)
[2016-09-24 00:15] VITALS: BP 137/87; PULSE 70; RESP 18; TEMP 97.5; O2SAT 97
[2016-09-24] MEDS: D5-1/2 NS + KCL 20 MEQ INJ 1,000 ML IV SCH ×2 (03:22→11:20)
[2016-09-24] MEDS: METOCLOPRAMIDE HCL 10 MG/2 ML VIAL IV PUSH SCH ×3 (05:25→21:36)
[2016-09-24] MEDS: SODIUM CHLORIDE 0.9% FLUSH 5 ML FLUSH IVF SCH ×2 (07:42→21:36)
[2016-09-24 08:00] VITALS: BP 139/87; PULSE 70; RESP 18; TEMP 97.9; O2SAT 94
[2016-09-24] MEDS: ALPRAZolam 0.5 MG TAB PO SCH (08:58)
[2016-09-24] MEDS: LISINOPRIL 20 MG TAB PO SCH (08:58)
[2016-09-24] MEDS: ENOXAPARIN SODIUM 40 MG/0.4 ML SYRINGE SQ SCH (11:20)
--- NOTE | 2016-09-24 11:55 | HHI.PR ---
Subjective Subjective Notes She still feels bloated. She did have a liquid BM last night. Tolerating clears. Objective Vitals/I&O Vital Signs Date Time Temp Pulse Resp B/P Pulse Ox O2 Delivery O2 Flow Rate FiO2 09/24/16 08:00 97.9 70 18 139/87 94 09/21/16 12:15 Nasal Cannula 3 Radiology Last Impressions Abdomen/Pelvis CT 09/18/16 0000 Signed Impressions: Service Date/Time: Sunday, September 18, 2016 17:48 - CONCLUSION: 1. Findings consistent with a distal small bowel obstruction. There is a transition zone in pelvis and the terminal ileum and colon are decompressed. 2. There is a small to moderate amount of ascitic fluid. There is no free air. Zeeshan Castro MD Abdomen X-Ray 09/18/16 0000 Signed Impressions: Service Date/Time: Sunday, September 18, 2016 18:55 - CONCLUSION: NG tube in stomach. Octavio Silveira MD Narrative Exam NAD, resting in bed nonlabored breathing Abd: moderate distention, soft inc c/d/i A/P Assessment and Plan 55 yo F with evaluation consistent with SBO POD 3 s/p lap lysis of adhesions Tolerating clears and had a BM. Still moderately distended. Start regular diet. Encourage walking in halls. DVT proph: SCDs. Lovenox. Likely d/c home tomorrow. Adelso Green MD Sep 24, 2016 11:55
[2016-09-24 12:00] VITALS: BP 135/97; PULSE 80; RESP 18; TEMP 97; O2SAT 97
[2016-09-24] MEDS ORDERED: oxyCODONE/ACETAMINOPHEN 5 MG/325 MG TAB PO PRN ×2 (12:00)
[2016-09-24 16:00] VITALS: BP 134/90; PULSE 85; RESP 18; TEMP 95.9; O2SAT 95
[2016-09-24 20:00] VITALS: BP 158/99; PULSE 91; RESP 17; TEMP 97.1; O2SAT 95
[2016-09-24] MEDS: PRAVASTATIN SOD 80 MG TAB PO SCH (21:35)
[2016-09-24] MEDS ORDERED: diphenhydrAMINE HCL 25 MG CAP PO PRN (22:45)
[2016-09-25] VITALS: BP 127/81; PULSE 74; RESP 17; TEMP 96; O2SAT 93
[2016-09-25] MEDS: METOCLOPRAMIDE HCL 10 MG/2 ML VIAL IV PUSH SCH (04:24)
[2016-09-25 08:00] VITALS: BP 128/88; PULSE 75; RESP 18; TEMP 97.3; O2SAT 92
[2016-09-25] MEDS: ALPRAZolam 0.5 MG TAB PO SCH (08:09)
[2016-09-25] MEDS: LISINOPRIL 20 MG TAB PO SCH (08:09)
[2016-09-25] MEDS: SODIUM CHLORIDE 0.9% FLUSH 5 ML FLUSH IVF SCH (08:11)
--- NOTE | 2016-09-25 09:22 | HHI.DS ---
Discharge Summary Admission Date Sep 18, 2016 at 18:43 Discharge Date: Sep 25, 2016 Admitting Diagnosis SBO Procedures Diagnostic laparoscopy, lysis of adhesions Brief History The patient is a 55-year-old female who 2 nights ago developed severe abdominal pain diffusely followed by vomiting. The pain and vomiting both have persisted since that time and she presented to the emergency department in [place] this morning. The patient has never had this happen before. She has no abdominal surgical history. She has not been passing flatus and had a small bowel movement yesterday morning. No colonoscopy. 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 He was evaluated in the emergency department and noted to have leukocytosis of 17,[address] scan of the abdomen and pelvis concerning for small bowel obstruction. CBC/BMP: 09/22/16 0331 PE at Discharge NAD, resting in bed nonlabored breathing Abd: moderate distention, soft inc c/d/i Hospital Course The patient did not improve from obstructive symptoms and required lysis of adhesions. She did well post op and required a few days for normalization of bowel movts and to tolerate diet. By day of discharge, she tolerated regular food without nausea and was having liquid bowel movts. Pain was minimal post op. Pt Condition on Discharge: Good Discharge Disposition: Discharge Home Discharge Instructions DIET: Follow Instructions for: As Tolerated, No Restrictions Activities you can perform: See Additionl Instruction Other Activity Instructions: Ok to shower. No heavy lifting. Follow up Referrals: Surgical - 2 Weeks with Adelso Green MD Continued Medications: Alprazolam (Xanax) 0.5 Mg Tab 0.5 MG PO DAILY ANXIETY Ref 0 TAB Lisinopril (Lisinopril) 40 Mg Tab 40 MG PO DAILY Blood Pressure Management #30 Ref 0 TAB Miscellaneous (No Current Meds) Misc Simvastatin (Simvastatin) 40 Mg Tab 40 MG PO DAILY Cholesterol Management #30 Ref 0 TAB Adelso Green MD Sep 25, 2016 09:22
== END 2016-09-25 11:56 | disposition home or self-care (01) | DRG 337 ==
LOC: PHED 14:50 → PHEDA 18:43 → N07A 22:08
PROVIDERS: ADMIT Surgery; ATTEND Surgery
PROC: 0DNG4ZZ Release Left Large Intestine, Percutaneous Endoscopic Approach (ICD-10-PCS; principal; 2016-09-21 09:58)
DX: K56.5 Intestinal adhesions [bands] with obstruction (postinfection) (principal); K66.0 Peritoneal adhesions (postprocedural) (postinfection); I10 Essential (primary) hypertension; F17.210 Nicotine dependence, cigarettes, uncomplicated; E78.5 Hyperlipidemia, unspecified
CPT/HCPCS: 74000; 74020; 74177; 74250; 80048; 80053; 83605; 83690; 85025; 93005; 94150; 96361; 96374; 96375; C9113; J0131; J0360; J0690; J1100; J1130; J1170; J1650; J2250; J2270; J2405; J2710; J2765; J3010; J3480; J7030; J7120; Q9963; Q9967